=== PATIENT | male | born 1950 | race African-American/Black ===

== ENCOUNTER 2018-05-12 08:25 | Emergency (ER) | payer MEDICARE, OTHER ==
[~2018-05-12] VITALS: Ht 172.7 cm; Wt 72.6 kg
[2018-05-12 08:31] VITALS: BP 134/93
--- NOTE | 2018-05-12 08:47 | Emergency Room Report ---
History of Present Illness General Chief Complaint: Skin Rash/Abscess Source: Patient Present Illness HPI Patient is a 67-year-old male who presented after increased facial rash. Patient gradual onset of symptoms. He reports having increased itchiness to his face associated with increased blurred vision. Patient denies any foreign body sensation. He denies any recent trauma. He denies any changes in his medications over the past few weeks. Allergies: Coded Allergies: PENICILLINS (Verified Allergy, Unknown, 05/12/18) Patient History Reviewed Nursing Documentation: PMH: Agreed; PSxH: Agreed Nursing Documentation-PMH Past Medical History: No History, Except For Review of Systems All Other Systems: negative except mentioned in HPI Physical Exam Vital Signs Date Time Temp Pulse Resp B/P (MAP) Pulse Ox O2 Delivery O2 Flow Rate FiO2 05/12/18 08:31 97.9 62 18 134/93 95 Room Air 97.9 General Appearance: well appearing, no apparent distress, alert, GCS 15 Head: normocephalic, atraumatic ENT: hearing grossly normal, normal voice Neck: full range of motion, supple Respiratory: chest non-tender, lungs clear, normal breath sounds, no respiratory distress, speaking full sentences Cardiovascular #1: normal inspection, regular rate, rhythm, no edema, no JVD Gastrointestinal: normal inspection, normal bowel sounds, non tender, soft Musculoskeletal: normal inspection, back normal, digits/nails normal, no calf tenderness Neurologic: normal gait Psychiatric: mood/affect normal Skin: other - facial erythema, no blistering or papules, pupils reactive Medical Decision Making Diagnostic Impression: Primary Impression: Skin rash ER Course Patient presented for skin rash. Differential diagnosis included was not limited to the lupus, allergic reaction, cellulitis, medication reaction among others. Patient has a benign exam and does not appear to require any further imaging or laboratory testing at this time. The patient was advised to have outpatient testing if rash not improved.The patient's rash appears to be muscle into his face which is consistent with a photosensitive dermatitis and he may need some further rheumatologic workup. Patient was given prednisone as well as Benadryl. He was advised to return if he had any worsening of symptoms. The patient is advised to follow up with primary care doctor in 2 days. Patient is advised to return if any worsening condition or if any changes in status that are concerning. This report is dictated with [employer] gear repairer software which may occasionally lead to discrepancies related to use of this software. Last Vital Signs Date Time Temp Pulse Resp B/P (MAP) Pulse Ox O2 Delivery O2 Flow Rate FiO2 05/12/18 08:31 97.9 62 18 134/93 95 Room Air 97.9 Status: improved Disposition: HOME, SELF-CARE Condition: Stable Scripts Diphenhydramine Hcl* (BENADRYL*) 25 Mg Capsule 25 MG ORAL Q6H PRN for Itching, #15 CAP Prov: Jose L Hale MD 05/12/18 Prednisone* (PREDNISONE*) 20 Mg Tablet 60 MG ORAL DAILY, #15 TAB Prov: Jose L Hale MD 05/12/18 Jose L Hale MD May 12, 2018 08:47
[2018-05-12] MEDS ORDERED: PREDNISONE20 MG ORAL (09:02)
[2018-05-12] MEDS ORDERED: BENADRYL25 MG ORAL (09:02)
[2018-05-12 09:18] VITALS: BP 127/84
== END 2018-05-12 09:20 | disposition home or self-care (01) ==
LOC: EMR 09:05
DX: R21 Rash and other nonspecific skin eruption (principal)
CPT/HCPCS: 82962; 99283; J7512

== ENCOUNTER 2018-08-11 12:46 | Emergency (ER) | payer MEDICARE, OTHER ==
[~2018-08-11] VITALS: Ht 172.7 cm; Wt 78.0 kg
[~2018-08-11 12:46] MED LIST: BENADRYL25 MG ORAL; PREDNISONE20 MG ORAL
[2018-08-11] MEDS ORDERED: AMLODIPINE BESY10 MG ORAL (12:55)
[2018-08-11] MEDS ORDERED: descovy (12:55)
[2018-08-11] MEDS ORDERED: TIVICAY50 MG ORAL (12:55)
--- NOTE | 2018-08-11 13:27 | Diagnostic Imaging Report ---
EXAM: XR Chest, 1 View CLINICAL HISTORY: Chest pain TECHNIQUE: Frontal view of the chest. COMPARISON: No relevant prior studies available. FINDINGS: Lungs: Unremarkable. The lungs appear clear. No confluent pulmonary opacities. Pleural space: Unremarkable. The costophrenic angles are sharp. No visible pneumothorax. Heart: Unremarkable. No cardiomegaly. Mediastinum: Unremarkable. Bones/joints: Unremarkable. Vasculature: The aorta is tortuous. IMPRESSION: No acute findings.
[2018-08-11] MEDS ORDERED: Naproxen 500mg tab ORAL ONE (13:45)
[2018-08-11] MEDS ORDERED: Norco 5mg/325mg tab ORAL ONE (13:45)
[2018-08-11 14:06] LABS: HEMATOCRIT 44.8 % (42.0-52.0); MEAN CORPUSCULAR VOLUME 85 FL (80-99); PLATELET COUNT 202 K/UL (150-450); RED BLOOD COUNT 5.27 M/UL (4.70-6.10); RED CELL DISTRIBUTION WIDTH 11.8 % (11.6-14.8); WHITE BLOOD COUNT 5.6 K/UL (4.8-10.8)
[2018-08-11] MEDS ORDERED: IBUPROFEN600 MG ORAL (14:17)
[2018-08-11] MEDS ORDERED: VALIUM5 MG ORAL (14:17)
[2018-08-11 14:20] LABS: ANION GAP 7 mmol/L (5-15); BLOOD UREA NITROGEN 14 mg/dL (7-18); CALCIUM 9.7 MG/DL (8.5-10.1); CARBON DIOXIDE 30 MMOL/L (21-32); CHLORIDE 102 MMOL/L (98-107); CREATININE 1.3 MG/DL (0.55-1.30); POTASSIUM 4.7 MMOL/L (3.5-5.1); SODIUM 139 MMOL/L (136-145)
[2018-08-11 14:22] LABS: ALANINE AMINOTRANSFERASE 24 U/L (12-78); ALBUMIN 4.2 G/DL (3.4-5.0); ALBUMIN/GLOBULIN RATIO 0.8 (1.0-2.7); ALKALINE PHOSPHATASE 74 U/L (46-116); ASPARTATE AMINO TRANSFERASE 25 U/L (15-37); BILIRUBIN,TOTAL 0.8 MG/DL (0.2-1.0)
[2018-08-11 14:40] VITALS: BP 140/80
--- NOTE | 2018-08-11 15:12 | Emergency Room Report ---
History of Present Illness General Chief Complaint: Pain Source: Patient Present Illness HPI Patient's a 67-year-old male presented after increased left shoulder pain as well as increased left-sided chest pain. Patient denies any the recent leg pain or swelling. He denies any recent trauma. The pain was associated with intermittent muscle spasming. He denies any fever. He reports having regularly been a marijuana smoker. He denies any productive cough. The pain is worse with the movements of the shoulder. The patient denies any recent injuries. He has prior history of HIV. Allergies: Coded Allergies: PENICILLINS (Verified Allergy, Unknown, 05/12/18) Patient History Past Medical History: see triage record Reviewed Nursing Documentation: PMH: Agreed; PSxH: Agreed Nursing Documentation-PMH Past Medical History: No History, Except For Hx Hypertension: Yes Review of Systems All Other Systems: negative except mentioned in HPI Physical Exam Vital Signs Date Time Temp Pulse Resp B/P (MAP) Pulse Ox O2 Delivery O2 Flow Rate FiO2 08/11/18 12:46 98.2 69 17 140/99 98 Room Air Sp02 EP Interpretation: reviewed, normal General Appearance: normal inspection, well appearing, no apparent distress, alert, GCS 15 Head: atraumatic ENT: normal ENT inspection, hearing grossly normal, normal voice Neck: normal inspection, full range of motion, supple, no bony tend Respiratory: normal inspection, lungs clear, normal breath sounds, no respiratory distress, no retraction, no wheezing Cardiovascular #1: regular rate, rhythm, no edema Gastrointestinal: normal inspection, normal bowel sounds, non tender, soft, no guarding, no hernia Genitourinary: no CVA tenderness Musculoskeletal: normal inspection, back normal, decreased range of motion Neurologic: normal inspection, alert, oriented x3, responsive, valve tester III-XII nml as tested, motor strength/tone normal, speech normal Psychiatric: normal inspection, judgement/insight normal, mood/affect normal Skin: normal inspection, normal color, no rash Medical Decision Making Diagnostic Impression: Primary Impression: Spasm ER Course Patient presented for left sided and shoulder pain. Chest pain. Differential diagnosis included but was not limited to acute coronary syndrome, pulmonary embolism, pneumonia, aortic dissection, shingles, pneumothorax, aortic dissection, esophageal rupture, pericarditis. Because of complexity of patient' s case laboratory testing and imaging studies were ordered. EKG interpreted by me showed normal sinus rhythm with a rate of [address] or T wave changes. Chest x-ray one view read by radiology indication pain showed no evidence of acute infiltrate or pneumothorax or effusions.The patient is given medications for pain. He was noted to have improvement of symptoms. Patient was advised to follow-up with outpatient cardiology workup. The patient is advised to return if he began having worsening difficulty breathing productive cough for fever or other concerns. The patient does not appear to have any risk factors for pulmonary embolism. He was advised the marijuana cessation. Labs Test 08/11/18 13:30 White Blood Count 5.6 K/UL (4.8-10.8) Red Blood Count 5.27 M/UL (4.70-6.10) Hemoglobin 15.0 G/DL (14.2-18.0) Hematocrit 44.8 % (42.0-52.0) Mean Corpuscular Volume 85 FL (80-99) Mean Corpuscular Hemoglobin 28.4 PG (27.0-31.0) Mean Corpuscular Hemoglobin Concent 33.4 G/DL (32.0-36.0) Red Cell Distribution Width 11.8 % (11.6-14.8) Platelet Count 202 K/UL (150-450) Mean Platelet Volume 8.1 FL (6.5-10.1) Neutrophils (%) (Auto) % (45.0-75.0) Lymphocytes (%) (Auto) % (20.0-45.0) Monocytes (%) (Auto) % (1.0-10.0) Eosinophils (%) (Auto) % (0.0-3.0) Basophils (%) (Auto) % (0.0-2.0) Differential Total Cells Counted 100 Neutrophils % (Manual) 51 % (45-75) Lymphocytes % (Manual) 41 % (20-45) Monocytes % (Manual) 7 % (1-10) Eosinophils % (Manual) 1 % (0-3) Basophils % (Manual) 0 % (0-2) Band Neutrophils 0 % (0-8) Platelet Estimate Adequate Platelet Morphology Normal Red Blood Cell Morphology Normal Sodium Level 139 MMOL/L (136-145) Potassium Level 4.7 MMOL/L (3.5-5.1) Chloride Level 102 MMOL/L (98-107) Carbon Dioxide Level 30 MMOL/L (21-32) Anion Gap 7 mmol/L (5-15) Blood Urea Nitrogen 14 mg/dL (7-18) Creatinine 1.3 MG/DL (0.55-1.30) Estimat Glomerular Filtration Rate > 60 mL/min (>60) Glucose Level 95 MG/DL (74-106) Calcium Level 9.7 MG/DL (8.5-10.1) Total Bilirubin 0.8 MG/DL (0.2-1.0) Aspartate Amino Transf (AST/SGOT) 25 U/L (15-37) Alanine Aminotransferase (ALT/SGPT) 24 U/L (12-78) Alkaline Phosphatase 74 U/L (46-116) Troponin I 0.000 ng/mL (0.000-0.056) Total Protein 9.3 G/DL (6.4-8.2) Albumin 4.2 G/DL (3.4-5.0) Globulin 5.1 g/dL Albumin/Globulin Ratio 0.8 (1.0-2.7) Lipase 89 U/L (73-393) Last Vital Signs Date Time Temp Pulse Resp B/P (MAP) Pulse Ox O2 Delivery O2 Flow Rate FiO2 08/11/18 14:40 98.2 86 18 140/80 98 08/11/18 12:46 Room Air Status: improved Disposition: HOME, SELF-CARE Condition: Stable Scripts Diazepam* (VALIUM*) 5 Mg Tablet 5 MG ORAL TID PRN for ANXIETY, #30 TAB 0 Refills Prov: Jose L Hale MD 08/11/18 Ibuprofen* (MOTRIN*) 600 Mg Tablet 600 MG ORAL Q8H PRN for For Pain, #30 TAB 0 Refills Prov: Jose L Hale MD 08/11/18 Referrals: NOT CHOSEN IPA/,REFERRING Patient Instructions: Chest Wall Pain Jose L Hale MD Aug 11, 2018 15:12
[2018-08-11 15:42] VITALS: BP 140/80
== END 2018-08-11 15:45 | disposition home or self-care (01) ==
LOC: EMR 13:25
DX: M62.838 Other muscle spasm (principal); M25.512 Pain in left shoulder; B20 Human immunodeficiency virus [HIV] disease; I10 Essential (primary) hypertension; Z88.0 Allergy status to penicillin
CPT/HCPCS: 36415; 71045; 80053; 83690; 84484; 85007; 85025; 93005; 99284